=== PATIENT | male | born 1960 | race Caucasian/White ===

== ENCOUNTER → 2019-08-31 09:33 | Outpatient (CLI) | payer BC, SELFPAY ==
--- NOTE | 2019-08-31 09:38 | DI.RAD.S_ITS ---
PROCEDURE: XR SHOULDER RT MIN 2V INDICATIONS: RT SHOULDER PAIN TECHNIQUE: 3 views of the shoulder were acquired. COMPARISON: None. FINDINGS: Bones: There is widening of the acromioclavicular joint that measures 11 mm. No fractures are seen. No suspicious bony lesions. Visualized ribs appear intact. Age-appropriate bony degenerative changes are seen. Soft tissues: No suspicious soft tissue calcifications. The visualized lung demonstrates an unremarkable appearance. IMPRESSION: There is widening of the acromioclavicular joint, which is consistent with acromioclavicular separation. If it would be helpful for clinical management decision making, please consider a dedicated bilateral shoulder examination, performed without and with weights. Dictated by: Ashish Miles M.D. on 08/31/2019 at 9:13 Approved by: Ashish Miles M.D. on 08/31/2019 at 9:14
== END ==
PROVIDERS: PCP Internal Medicine; Referring Provider Internal Medicine; Visit Provider Internal Medicine
DX: M25.511 Pain in right shoulder (principal); M75.81 Other shoulder lesions, right shoulder
CPT/HCPCS: 73030

== ENCOUNTER → 2020-06-05 15:22 | Outpatient (CLI) | payer BC, SELFPAY ==
[2020-06-05] MEDS: COVID-19 VACC #1, MRNA(MOD) 100 MCG/0.5 ML VIAL IM (15:31)
== END ==
PROVIDERS: PCP Internal Medicine; Visit Provider Internal Medicine
DX: Z23 Encounter for immunization (principal)
CPT/HCPCS: 0011A; 91301

== ENCOUNTER → 2020-07-03 15:25 | Outpatient (CLI) | payer BC, SELFPAY ==
[2020-07-03] MEDS: COVID-19 VACC #2, MRNA(MOD) 100 MCG/0.5 ML VIAL IM (15:31)
== END ==
PROVIDERS: PCP Internal Medicine; Visit Provider Internal Medicine
DX: Z23 Encounter for immunization (principal)
CPT/HCPCS: 0012A; 91301